=== PATIENT | male | born 1985 | race Caucasian/White ===

== ENCOUNTER 2022-10-23 12:20 | Emergency (ER) | payer OTHER ==
[2022-10-23] MEDS ORDERED: Alum Hydro/Mag Hydro/Simeth XS 15 ML, Lidocaine 2% 5 ML PO ONE ×2 (13:53)
[2022-10-23 14:25] LABS: CARBON DIOXIDE,CO2 27.1 mmol/L (21.0-32.0)
== END 2022-10-23 15:05 | disposition home or self-care (01) ==
LOC: MW.ED 12:20
DX: R07.9 Chest pain, unspecified (principal)
CPT/HCPCS: 36415; 71045; 80053; 84484; 85025; 93005; 99285; A9270; 93010; 99283